=== PATIENT | male | born 1985 | race Caucasian/White ===

== ENCOUNTER 2017-05-03 12:49 | Emergency (ER) | payer OTHER, BC ==
[2017-05-03 13:01] VITALS: BP 170/100; PULSE 83; TEMP 98.3; BMI 44.7
--- NOTE | 2017-05-03 14:38 | PDOC ---
History of Present Illness - General Chief Complaint: Injury Stated Complaint: INJURY - History of Present Illness Initial Comments: 05/03/17 14:37 CHIEF COMPLAINT: R foot pain HISTORY OF PRESENT ILLNESS: 31 yo M with hx of HTN presents to fast track with pain to R foot. 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 He reports that ever since that happened the pain has worsened and now his right foot is swollen. He states that he can walk and bear weight on the foot "but it hurts too much." PAST MEDICAL HISTORY: HTN FAMILY HISTORY: Denies SOCIAL HISTORY: Denies tobacco, alcohol, illicit drug use. SURGICAL HISTORY: Denies ALLERGIES: No known drug allergies REVIEW OF SYSTEMS General/Constitutional: Denies fever or chills. Denies weakness, weight change. HEENT: Denies change in vision. Denies ear pain or discharge. Denies sore throat. Cardiovascular: Denies chest pain or shortness of breath. Respiratory: Denies cough, wheezing, or hemoptysis. Gastrointestinal: Denies nausea, vomiting, diarrhea or constipation. Denies rectal bleeding. Genitourinary: Denies dysuria, frequency, or change in urination. Musculoskeletal: R foot pain. PHYSICAL EXAM General Appearance: Well-appearing, appropriately dressed. No apparent distress. HEENT: EOMI, PERRLA. No conjunctival pallor. No photophobia, scleral icterus. Respiratory/Chest: Lungs CTAB. Vascular Pulses: Dorsalis-Pedis (R): 2+, Dorsalis-Pedis (L): 2+ Musculoskeletal/Extremities: Swelling and tenderness to lateral aspect of R foot. No loss of sensation to toes or feet. Full ROM to foot and ankle. No swelling to tenderness to R lateral malleolus. FROM of all other extremities, normal capillary refill. Integumentary: Appropriate color, dry, warm. No cyanosis, erythema, jaundice or rash Neurologic: conveyor attendant II-XII intact. Fully oriented, alert. Appropriate mood/affect. Motor strength 5/5. No appreciable EOM palsy, facial droop or sensory deficit. Past History - Past Medical History Allergies/Adverse Reactions: Allergies Allergy/AdvReac Type Severity Reaction Status Date / Time No Known Allergies Allergy Verified 05/03/17 12:56 Home Medications: Ambulatory Orders Diclofenac Sodium [Voltaren -] 75 mg PO BID #14 tablet. 05/03/17 COPD: No HTN: Yes - Suicide/Smoking/Psychosocial Hx Smoking History: Current some day smoker Number of Cigarettes Smoked Daily: 1 Information on smoking cessation initiated: Yes 'Breaking Loose' booklet given: 05/03/17 Hx Alcohol Use: No Drug/Substance Use Hx: No Substance Use Type: None *Physical Exam - Vital Signs Last Vital Signs Temp Pulse Resp BP Pulse Ox 98.3 F 83 18 170/100 100 05/03/17 12:57 05/03/17 12:57 05/03/17 12:57 05/03/17 12:57 05/03/17 12:57 Medical Decision Making - Medical Decision Making 05/03/17 14:51 31 yo M with hx of HTN presents to fast track with pain to R foot. -R foot x-ray -60 mg Toradol X-ray positive for fracture to mid shaft of 5th metarsal. -Posterior splint applied -Post op shoe -Crutches Advised patient to f/u with podiatry and of signs and symptoms for return to ER ; patient verbalized understanding and agrees to plan. *DC/Admit/Observation/Transfer Diagnosis at time of Disposition: Stress fracture of foot Qualifiers: Encounter type: initial encounter Laterality: right Qualified Code(s): M84.374A - Stress fracture, right foot, initial encounter for fracture - Discharge Dispostion Disposition: HOME Condition at time of disposition: Stable Admit: No - Prescriptions Prescriptions: Diclofenac Sodium [Voltaren -] 75 mg PO BID #14 tablet. - Referrals Referrals: Ishan Jung MD [Staff Physician] - - Patient Instructions Printed Discharge Instructions: DI for Foot Fracture Additional Instructions: Please take medication as prescribed. Elevate your foot above the level of your heart as much as possible to decrease swelling. Do NOT bear weight on the foot. Follow up with podiatry (referral provided) within the next THREE days. If you develop ANY loss of sensation to your toes or foot, increased swelling, change in color or temperature to your toes, or any new or worsening symptoms, please return to the ER. - Post Discharge Activity Forms/Work/School Notes: Back to Work
[2017-05-03] MEDS ORDERED: KETOROLAC TROMETHAMINE 60 MG/2 ML VIAL IM ONE (14:47)
[2017-05-03] MEDS ORDERED: KETOROLAC TROMETHAMINE 60 MG/2 ML VIAL ONE (14:49)
== END 2017-05-03 16:08 | disposition home or self-care (01) ==
LOC: JERFT 12:49
PROC: 3E0233Z Introduction of Anti-inflammatory into Muscle, Percutaneous Approach (ICD-10-PCS; principal; 2017-05-03)
PROC: 2W3QX1Z Immobilization of Right Lower Leg using Splint (ICD-10-PCS; 2017-05-03)
DX: M84.374A Stress fracture, right foot, initial encounter for fracture (principal); X50.3XXA Overexertion from repetitive movements, initial encounter; Y93.01 Activity, walking, marching and hiking; Y92.89 Other specified places as the place of occurrence of the external cause; Y99.0 Civilian activity done for income or pay; I10 Essential (primary) hypertension
CPT/HCPCS: 73630-TC-RT; 99282-25

== ENCOUNTER 2017-12-17 10:44 | Inpatient (IN) | payer BC ==
[2017-12-16 17:15] VITALS: BMI 50.8
[2017-12-17] MEDS ORDERED: ceFAZolin SODIUM 1 GM VIAL ONE ×2 (12:15→13:20)
[2017-12-17] MEDS ORDERED: fentaNYL CITRATE 250 MCG/5 ML VIAL ONE (12:15)
[2017-12-17] MEDS ORDERED: PROPOFOL 20 ML ONE ×2 (12:15)
[2017-12-17] MEDS ORDERED: ROCURONIUM BROMIDE 50 MG/5 ML VIAL ONE ×2 (12:15→13:45)
[2017-12-17] MEDS ORDERED: MIDAZOLAM HCL 2 MG/2 ML SINGLE DOSE VIAL ONE ×2 (12:16→12:28)
[2017-12-17] MEDS ORDERED: DEXAMETHASONE SOD PHOSPHATE/PF 10 MG/ML SDV ONE (12:29)
[2017-12-17] MEDS ORDERED: ROPIVACAINE HCL 0.5% 30ML VIAL ONE (12:29)
[2017-12-17] MEDS ORDERED: ceFAZolin SODIUM 1 GM VIAL IVPB ONE (13:24)
[2017-12-17] MEDS ORDERED: GLYCOPYRROLATE 0.2 MG/1 ML VIAL ONE (14:40)
[2017-12-17] MEDS ORDERED: NEOSTIGMINE METHYLSULFATE 0.5 MG/ML - 10 ML MDV ONE (14:40)
[2017-12-17] MEDS ORDERED: BUPIVACAINE HCL/PF 0.5% (5MG/ML) 10 ML VIAL IJ ONE (14:42)
[2017-12-17] MEDS ORDERED: ONDANSETRON 4 MG/2 ML VIAL IVPUSH PRN (14:54)
[2017-12-17] MEDS ORDERED: FAMOTIDINE 20 MG PREMIXED IVPB IVPB ONE (15:00)
--- NOTE | 2017-12-17 15:06 | OP ---
Operative Note - Note: Operative Date: 12/17/17 Pre-Operative Diagnosis: Morbid Obesity. Sleep Apnea Operation: Laparoscopic Vertical Sleeve Gastrectomy. Diagnostic Laparoscopy Findings: Greater curve sleeve gastrectomy performed with #[address] Post-Operative Diagnosis: Same as Pre-op Surgeon: Thomas Hernandez Card Player: Porter Noguera Anesthesia: General Specimens Removed: Greater curve of stomach Estimated Blood Loss (mls): 30 Operative Report Dictated: Yes
--- NOTE | 2017-12-17 15:08 | OP ---
Operative Note - Note: Operative Date: 12/17/17 Pre-Operative Diagnosis: Morbid obesity due to excess calories Operation: Laproscopic sleeve gastrectomy Post-Operative Diagnosis: Same as Pre-op Surgeon: Thomas Hernandez Photography Coordinator: Porter Noguera Anesthesia: General Estimated Blood Loss (mls): 30 Fluid Volume Replaced (mls): 1,600 Operative Report Dictated: Yes
--- NOTE | 2017-12-17 15:09 | SURG ---
Surgery Barker Peeler Note Barker Peeler: Porter Noguera PA-C Date of Service: 12/17/17 Diagnosis: Morbid obesity due to excess calories Procedure: Laproscopic sleeve gastrectomy I was present for the entirety of the operative procedure. For further detail, please refer to operative report.
[2017-12-17] MEDS: METOCLOPRAMIDE HCL INJECTION 10 MG/2 ML VIAL IVPUSH SCH ×3 (15:10→20:45)
[2017-12-17] MEDS ORDERED: LACTATED RINGERS SOLUTION 1,000 ML IV SCH (15:15)
[2017-12-17] MEDS ORDERED: ACETAMINOPHEN INJECTION 100 ML IVPB ONE (15:19)
[2017-12-17] MEDS: ACETAMINOPHEN 1000 MG/100 ML VIAL (NON FORMULARY) IVPB PRN (15:25)
[2017-12-17] MEDS: SODIUM CHLORIDE 1,000 ML IV SCH (15:25)
--- NOTE | 2017-12-17 16:02 | OP ---
DATE OF OPERATION: 12/17/2017 PREOPERATIVE DIAGNOSES: 1. Morbid obesity. 2. Sleep apnea. POSTOPERATIVE DIAGNOSES: 1. Morbid obesity. 2. Sleep apnea. PROCEDURE PERFORMED: 1. Laparoscopic vertical sleeve gastrectomy. 2. Diagnostic laparoscopy. OPERATING SURGEON: Thomas Hernandez MD ICE BAG ASSEMBLER: Porter Noguera PA-C ANESTHESIA: General. OPERATIVE PROCEDURE: The patient was brought into the operating room, placed on the OR table in the supine position. All precautions were taken initially including padding for the back and the feet and Venodyne boots were placed on both lower extremities. At that point the abdomen was prepped and draped in the usual manner. A Veress needle was placed in the left upper quadrant and a pneumoperitoneum was established. A No. 12 bladeless trocar was placed in the left upper quadrant. Through the trocar a laparoscopic camera was placed. Under direct vision a No. 15 bladeless trocar was placed in the midline in the supraumbilical position followed by a No. 5 bladeless trocar in the right upper quadrant and a No. 5 bladeless trocar above the left costal margin. A Brenna liver retractor was then placed in the epigastrium to retract the left lobe of the liver. The patient was then placed in a 20-degree reverse Trendelenburg position by Anesthesia. The pylorus was noted on the distal stomach and from there 6 cm was measured proximally. Here at the greater curvature of the stomach the stomach was lifted toward the anterior abdominal wall by the operating surgeon as the medical records assistant surgeon retracted the gastrocolic ligament inferiorly. The LigaSure device was used to dissect initially the gastrocolic ligament and eventually the short gastric vessels off the greater curve of the stomach. This was continued in a superior and vertical direction until the final short gastric vessel between the superior pole of the spleen and the proximal fundus was divided. At this juncture Anesthesia advanced a No. 40 bougie. The bougie advanced along the lesser curve and was advanced into the distal antrum. With the bougie held along the lesser curve a series of perez was performed, the first 2 being black-load perez 6 cm in length along the bougie. This was followed by a series of purple-load perez also 6 cm in length and also along the bougie. Once the final staple was fired in the left upper quadrant the greater curve was now completely detached from the lesser curve. It should be noted that prior to firing the staple both the anterior and posterior torres of remaining stomach were checked that they were equal and in the area of the esophagogastric junction approximately 1 to 1.5 cm of serosa remained on the anterior and posterior surfaces. At this juncture saline was placed around the staple line and Anesthesia inserted air into the bougie which distended the remaining lesser curvature and it showed no signs of any leaks and no obstruction as the entire stomach was distended. At this juncture the resected greater curve was removed from the No. 15 trocar site and sent off the field as a specimen to Pathology. On direct vision the No. 15 and No. 12 trocar sites were closed with the Endo Close device to prevent internal hernia and to prevent bleeding. Under direct vision all trocars were removed and pneumoperitoneum was released. All trocar sites received 0.25% Marcaine and were closed with 4-0 Biosyn in a subcuticular fashion. The midline was first closed with 3-0 Vicryl on the subcutaneous tissue followed by 4-0 Biosyn in the subcuticular tissue. Dressings were applied. The patient awoke from anesthesia and transferred out of the operating room to the recovery room in stable condition. EXPECTED BLOOD LOSS: 30 mL. Luciano [id number]
[2017-12-17 16:35] LABS: HEMATOCRIT 40.3 % (35.4-49); HEMOGLOBIN 13.1 GM/dL (11.7-16.9); MCH 27.4 pg (25.7-33.7); MCHC 32.5 g/dl (32.0-35.9); MEAN CELL VOLUME 84.1 fl (80-96); PLATELET COUNT 355 K/MM3 (134-434); RBC 4.79 M/mm3 (4.00-5.60); RDW 14.4 % (11.9-15.9); WHITE BLOOD COUNT 14.5 K/mm3 (4.0-10.0)
[2017-12-17] MEDS: METOPROLOL TARTRATE 5 MG/5 ML VIAL IVPUSH ONE ×2 (16:35→20:26)
[2017-12-17] MEDS ORDERED: METOPROLOL TARTRATE 5 MG/5 ML VIAL ONE (16:53)
[2017-12-17 16:54] LABS: ALBUMIN 3.6 g/dl (3.4-5.0); ANION GAP 10 (8-16); BILIRUBIN,TOTAL 0.4 mg/dL (0.2-1.0); BLOOD UREA NITROGEN 18 mg/dL (7-18); CALCIUM 8.6 mg/dL (8.5-10.1); CHLORIDE 107 mmol/L (98-107); CO2 25 mmol/L (21-32); CREATININE 1.2 mg/dL (0.7-1.3); GLUCOSE,RANDOM 108 mg/dL (74-106); POTASSIUM 4.1 mmol/L (3.5-5.1); SGOT/AST 31 U/L (15-37); SGPT/ALT 39 U/L (12-78); SODIUM 142 mmol/L (136-145); TOT PROT 7.2 g/dl (6.4-8.2)
[2017-12-17 16:55] LABS: ALK PHOS 50 U/L (45-117)
[2017-12-17] MEDS ORDERED: hydrALAZINE HCL 20 MG/ML VIAL ONE (17:21)
[2017-12-17] MEDS ORDERED: hydrALAZINE HCL 20 MG/ML VIAL IVPUSH ONE (17:25)
[2017-12-17] MEDS ORDERED: hydrALAZINE HCL 20 MG/ML VIAL IVPUSH PRN (18:21)
[2017-12-17] MEDS ORDERED: METOPROLOL TARTRATE 5 MG/5 ML VIAL IVPUSH ONE (19:00)
[2017-12-17] MEDS: FAMOTIDINE 20 MG/50 ML IVPB 20 MG/50 ML MG IVPB SCH (21:54)
[2017-12-17] MEDS: ENOXAPARIN NA (PORCINE) 40 MG/0.4 ML DISP.SYRIN SQ SCH (21:54)
[2017-12-18] MEDS: METOCLOPRAMIDE HCL INJECTION 10 MG/2 ML VIAL IVPUSH SCH ×3 (02:54→15:10)
[2017-12-18] MEDS: ACETAMINOPHEN 1000 MG/100 ML VIAL (NON FORMULARY) IVPB PRN ×2 (02:59→09:20)
[2017-12-18 08:07] LABS: HEMATOCRIT 38.1 % (35.4-49); HEMOGLOBIN 12.4 GM/dL (11.7-16.9); MCH 27.5 pg (25.7-33.7); MCHC 32.6 g/dl (32.0-35.9); MEAN CELL VOLUME 84.6 fl (80-96); MEAN PLT VOLUME 6.8 fl (7.5-11.1); PLATELET COUNT 330 K/MM3 (134-434); RDW 14.5 % (11.9-15.9); WHITE BLOOD COUNT 15.2 K/mm3 (4.0-10.0)
[2017-12-18 08:41] LABS: CHLORIDE 103 mmol/L (98-107); POTASSIUM 3.8 mmol/L (3.5-5.1); SODIUM 139 mmol/L (136-145)
[2017-12-18 08:48] LABS: ALBUMIN 3.5 g/dl (3.4-5.0); ALK PHOS 46 U/L (45-117); ANION GAP 11 (8-16); BILIRUBIN,TOTAL 0.4 mg/dL (0.2-1.0); BLOOD UREA NITROGEN 15 mg/dL (7-18); CALCIUM 8.7 mg/dL (8.5-10.1); CO2 25 mmol/L (21-32); CREATININE 0.8 mg/dL (0.7-1.3); GLUCOSE,RANDOM 105 mg/dL (74-106); SGOT/AST 24 U/L (15-37); SGPT/ALT 35 U/L (12-78); TOT PROT 7.2 g/dl (6.4-8.2)
[2017-12-18] MEDS: FAMOTIDINE 20 MG/50 ML IVPB 20 MG/50 ML MG IVPB SCH (09:20)
[2017-12-18] MEDS: ENOXAPARIN NA (PORCINE) 40 MG/0.4 ML DISP.SYRIN SQ SCH (09:33)
[2017-12-18] MEDS ORDERED: HYDROCHLOROTHIAZIDE 25 MG TABLET (FP) PO SCH (10:00)
[2017-12-18] MEDS ORDERED: amLODIPine BESYLATE 10 MG TABLET (FP) PO SCH (10:00)
[2017-12-18] MEDS ORDERED: NEBIVOLOL 10 MG TABLET (FP) PO SCH (10:00)
[2017-12-18] MEDS ORDERED: oxyCODONE HCL 5 MG TABLET ONE (11:43)
--- NOTE | 2017-12-18 14:50 | PN ---
Progress Note (short form) - Note Progress Note: POD#1 Afebrile;VSS P-80-98 BP-149/78 Pt doing well No N/V [place] PO clear liquids- 2 oz PO tid P/E- Abd- no leak, no obstruction WBC-15.2 H/H-12.4/38.1 P- PO clear liquids- 3 oz PO TID D/C home today F/U in 5 days
[2017-12-18] MEDS: SODIUM CHLORIDE 1,000 ML IV SCH (15:10)
--- NOTE | 2017-12-18 15:38 | DS ---
DATE OF ADMISSION: 12/17/2017 DATE OF DISCHARGE: 12/18/2017 HISTORY OF PRESENT ILLNESS/HOSPITAL COURSE: The patient is a 32-year-old gentleman with a history of morbid obesity for many years despite multiple attempts at dietary weight loss. He received nutritional, psychological, and pulmonary evaluation clearing prior to undergoing elective sleeve gastrectomy surgery. This patient was admitted to [facility] on December 17, 2017, and sleeve gastrectomy was performed. The details are described in the operative note. Postoperatively, the patient was sent to recovery room where he was stabilized and then sent to the floor. The patient remained on the floor bed with telemetry monitoring for careful observation. The patient had an uneventful first evening in the hospital and in the morning was sent to Radiology where a Gastrografin swallow was performed by the Radiology Department. It was reviewed by Bariatric Surgery and read by the radiologist as being normal with no signs of extravasation of contrast and no obstruction, the contrast flowed easily into the small bowel. The patient returned to his room and received 2 ounces of clear liquid which he tolerated well along with sips of water. Late in the afternoon on December 18, 2017, the patient tolerating clear liquid 3 ounces and ambulating well. He was given full instructions, subsequently discharged home and to follow up with the Bariatric service on December 23, 2017. cc: MD TOM Beavers M.D. [id number]
[2017-12-18 16:39] VITALS: BP 155/80; PULSE 76; TEMP 98.4
--- NOTE | 2017-12-21 17:18 | PATH ---
Surgical Pathology Report Patient Name: DUNG DAN [facility]. Rec. #: [id number] /Age/Gender: 1985 (Age: 32) / M Account: [id number] Location: 4 W TELEMETRY U Taken: 12/17/2017 Received: 12/20/2017 Reported: 12/21/2017 Physicians: Thomas Hernandez M.D. Specimen(s) Received GREATER CURVATURE STOMACH Clinical History Morbid obesity Final Diagnosis STOMACH, GREATER CURVATURE, LAPAROSCOPIC VERTICAL SLEEVE GASTRECTOMY: PORTION OF STOMACH WITH MILD CHRONIC GASTRITIS. IMMUNOHISTOCHEMICAL STAIN FOR H. PYLORI IS NEGATIVE. Electronically Signed Sophia Medina M.D. Gross Description Received in formalin, labeled "stomach" is a 114 gram, 17 x 5 x 1.5 cm. portion of stomach with a stapled margin of resection. The serosa is lofton-meeks with minimal attached fat. The mucosa is lofton-pink with normal folds. No mucosal masses are identified. Form Layer sections are submitted in one cassette. GUILLERMO/12/20/2017 jia/12/20/2017
== END 2017-12-18 16:39 | disposition home or self-care (01) | DRG 621 ==
LOC: JSAMEDAYSX 10:44 → J4W 19:38
PROVIDERS: ADMIT Surgery; ATTEND Surgery
PROC: 0WJP4ZZ Inspection of Gastrointestinal Tract, Percutaneous Endoscopic Approach (ICD-10-PCS; 2017-12-17)
PROC: 0DB64Z3 Excision of Stomach, Percutaneous Endoscopic Approach, Vertical (ICD-10-PCS; principal; 2017-12-17 12:00)
DX: E66.01 Morbid (severe) obesity due to excess calories (principal); Z68.43 Body mass index [BMI] 50.0-59.9, adult; G47.30 Sleep apnea, unspecified
CPT/HCPCS: 36415; 74241-TC-FY; 80053; 85027; 88307-TC; 94760; J0131; J7030

== ENCOUNTER 2021-09-23 06:22 | Inpatient (IN) | payer BC ==
[2021-09-17 15:42] VITALS: BMI 52.2
[2021-09-23] MEDS ORDERED: BUPIVACAINE HCL/PF 0.25% (2.5MG/ML) 10 ML VIAL ONE ×2 (07:26→07:32)
[2021-09-23] MEDS ORDERED: ROCURONIUM BROMIDE 50 MG/5 ML SYRINGE ONE ×2 (07:30→09:15)
[2021-09-23] MEDS ORDERED: SUCCINYLCHOLINE CHLORIDE 200 MG/10 ML SYRINGE ONE (07:30)
[2021-09-23] MEDS ORDERED: KETAMINE HCL 200 MG/20 ML VIAL ONE (07:34)
[2021-09-23] MEDS ORDERED: PROPOFOL 20 ML ONE ×2 (07:34)
[2021-09-23] MEDS ORDERED: MIDAZOLAM HCL 2 MG/2 ML SINGLE DOSE VIAL ONE ×2 (07:35)
[2021-09-23] MEDS ORDERED: DEXMEDETOMIDINE HCL 200 MCG/2 ML IVPB ONE (07:41)
[2021-09-23] MEDS ORDERED: ACETAMINOPHEN INJECTION 100 ML IVPB ONE (07:42)
[2021-09-23] MEDS ORDERED: BUPIVACAINE HCL 200 ML ONE (07:49)
[2021-09-23] MEDS ORDERED: NEOSTIGMINE METHYLSULFATE 0.5 MG/1 ML - 10 ML MDV ONE (09:09)
[2021-09-23] MEDS ORDERED: BUPIVACAINE HCL/PF 0.25% (2.5MG/ML) 10 ML VIAL IJ ONE (10:18)
[2021-09-23] MEDS ORDERED: ONDANSETRON 4 MG/2 ML VIAL IVPUSH PRN ×2 (10:25→11:14)
[2021-09-23] MEDS ORDERED: HYDROmorphone HCl 2 MG/ML VIAL IVPB PRN ×2 (10:28→10:39)
[2021-09-23] MEDS ORDERED: HYDROmorphone HCL CARPU-JECT 1 MG/1 ML DISP.SYRIN IVPB PRN (10:29)
[2021-09-23] MEDS ORDERED: ONDANSETRON 4 MG/2 ML VIAL ONE (11:01)
[2021-09-23] MEDS: METOCLOPRAMIDE HCL INJECTION 10 MG/2 ML VIAL IVPUSH SCH ×3 (11:02→22:36)
[2021-09-23] MEDS ORDERED: METOCLOPRAMIDE HCL INJECTION 10 MG/2 ML VIAL ONE (11:03)
[2021-09-23 11:06] LABS: HEMATOCRIT 39.6 % (35.4-49); HEMOGLOBIN 13.3 G/dL (11.7-16.9); MCH 29.3 pg (25.7-33.7); MCHC 33.6 g/dl (32.0-35.9); MEAN CELL VOLUME 87.2 fl (80-96); MEAN PLT VOLUME 6.5 fl (7.5-11.1); PLATELET COUNT 293.5 10^3/uL (134-434); RBC 4.54 10^6/uL (4.00-5.60); RDW 13.9 % (11.9-15.9); WHITE BLOOD COUNT 10.8 10^3/uL (4.0-10.8)
[2021-09-23 11:14] LABS: ALBUMIN 3.5 g/dl (3.4-5.0); BILIRUBIN,TOTAL 0.6 mg/dl (0.2-1); CALCIUM 8.9 mg/dl (8.5-10); CREATININE 0.8 mg/dl (0.55-1.3); TOT PROT 6.8 g/dl (6.4-8.2)
[2021-09-23] MEDS: SODIUM CHLORIDE 1,000 ML IV SCH (12:00)
[2021-09-23 21:00] LABS: HEMATOCRIT 41.5 % (35.4-49); HEMOGLOBIN 14.1 G/dL (11.7-16.9); MCH 29.5 pg (25.7-33.7); MCHC 33.9 g/dl (32.0-35.9); MEAN CELL VOLUME 86.8 fl (80-96); MEAN PLT VOLUME 6.4 fl (7.5-11.1); PLATELET COUNT 324.9 10^3/uL (134-434); RBC 4.78 10^6/uL (4.00-5.60); RDW 14.4 % (11.9-15.9); WHITE BLOOD COUNT 15.6 10^3/uL (4.0-10.8)
[2021-09-23 21:08] LABS: ALBUMIN 3.7 g/dl (3.4-5.0); BILIRUBIN,TOTAL 0.7 mg/dl (0.2-1); CALCIUM 9.2 mg/dl (8.5-10); CREATININE 0.8 mg/dl (0.55-1.3); TOT PROT 7.2 g/dl (6.4-8.2)
[2021-09-23] MEDS: FAMOTIDINE 20 MG/50 ML IVPB 20 MG/50 ML MG IVPB SCH (22:36)
[2021-09-24] MEDS: METOCLOPRAMIDE HCL INJECTION 10 MG/2 ML VIAL IVPUSH SCH ×3 (05:34→16:22)
[2021-09-24] MEDS ORDERED: LABETALOL HCL 5 MG/1 ML (100MG/20 ML VIAL) IVPUSH ONE (06:33)
[2021-09-24 09:04] LABS: ALBUMIN 3.7 g/dl (3.4-5.0); BILIRUBIN,TOTAL 0.7 mg/dl (0.2-1); CALCIUM 8.9 mg/dl (8.5-10); CREATININE 0.8 mg/dl (0.55-1.3)
[2021-09-24 09:07] LABS: HEMATOCRIT 41.6 % (35.4-49); MCH 29.2 pg (25.7-33.7); MCHC 33.5 g/dl (32.0-35.9); MEAN PLT VOLUME 6.5 fl (7.5-11.1); PLATELET COUNT 327.1 10^3/uL (134-434); RBC 4.78 10^6/uL (4.00-5.60); RDW 14.4 % (11.9-15.9); WHITE BLOOD COUNT 13.1 10^3/uL (4.0-10.8)
[2021-09-24] MEDS: FAMOTIDINE 20 MG/50 ML IVPB 20 MG/50 ML MG IVPB SCH (10:04)
[2021-09-24] MEDS: SODIUM CHLORIDE 1,000 ML IV SCH (10:04)
[2021-09-24] MEDS ORDERED: amLODIPine BESYLATE 10 MG TABLET (FP) PO SCH (12:45)
[2021-09-24] MEDS ORDERED: LOSARTAN POTASSIUM 50 MG TABLET PO SCH (12:45)
[2021-09-24] MEDS ORDERED: SPIRONOLACTONE 25 MG TABLET PO SCH (12:45)
[2021-09-24 14:07] VITALS: BP 148/91; PULSE 83; TEMP 99.2
[2021-09-24] MEDS ORDERED: oxyCODONE HCL 5 MG TABLET PO PRN (14:11)
[2021-09-24] MEDS ORDERED: ACETAMINOPHEN 325 MG TABLET (FP) PO PRN (14:11)
[2021-09-24] MEDS ORDERED: SODIUM CHLORIDE 1,000 ML IV SCH (14:15)
== END 2021-09-24 17:35 | disposition home or self-care (01) | DRG 621 ==
LOC: FM/S 06:22
PROVIDERS: ADMIT Surgery; ATTEND Surgery
PROC: 0DNW4ZZ Release Peritoneum, Percutaneous Endoscopic Approach (ICD-10-PCS; 2021-09-23)
PROC: 0DJ04ZZ Inspection of Upper Intestinal Tract, Percutaneous Endoscopic Approach (ICD-10-PCS; 2021-09-23)
PROC: 0DB64Z3 Excision of Stomach, Percutaneous Endoscopic Approach, Vertical (ICD-10-PCS; principal; 2021-09-23 09:04)
DX: E66.01 Morbid (severe) obesity due to excess calories (principal); Z68.43 Body mass index [BMI] 50.0-59.9, adult; K66.0 Peritoneal adhesions (postprocedural) (postinfection); I10 Essential (primary) hypertension; G47.33 Obstructive sleep apnea (adult) (pediatric); I44.0 Atrioventricular block, first degree; I77.819 Aortic ectasia, unspecified site; R07.89 Other chest pain; Z98.84 Bariatric surgery status
CPT/HCPCS: 36415; 74240-TC-FY; 80053; 82550; 82553; 84484; 85027; 86850; 86900; 86901; 88305-TC; 93005; 94660; 94760